=== PATIENT | female | born 1970 | race Caucasian/White ===

== ENCOUNTER 2017-10-31 13:38 | Emergency (ER) | payer MEDICAID ==
[~2017-10-31] VITALS: Ht 162.6 cm; Wt 74.8 kg
[~2017-10-31 13:38] MED LIST: ACETAMINOPHEN-1 EAC1 PO; ACYCLOVIR 800800 M1 PO; ADVAIR HFA 230M12 GM INH; CELEXA 20 MG TA20 M1; CIPRODEX OTIC7.5 ML OTIC; DARVOCET-N 1001 EACH PO; DUONEB 2.5-0.5 M3 ML INH; FLEXERIL; FLEXERIL PO; FLONASE 0.05%50 MCG NASAL; FOLIC ACID1 MG PO; GERD MED; IBUPROFEN; IBUPROFEN 800800 M1 PO; IBUPROFEN 800800 MG PO; LAMICTAL XR100 MG; LEXAPRO 10 MG T10 MG; MEDROLDOSEPACK PO; MIGRAINE MED; NEBULIZER MISCELL; NORCO 5-325 TA1 EACH; NORCO 5-325 TA1 EACH PO; NORCO 7.5-3251 EACH PO; NORFLEX100 MG PO; OMEPRAZOLE 20 M20 M1 PO; ONDANSETRON HCL4 M2 PO; PREDNISONE 5 MG5 M1 PO; PREMARIN; SEIZURE MEDS; SILVADENE20 GM TP; TRAMADOL 50 MG50 MG PO; VENTOLIN HFA 1818 GM INH; VICODIN; VOLTAREN GEL 1100 G1; XYLOCAINE; ZANAFLEX4 M1 PO; ZANAFLEX4 MG PO; ZPAK PO
[2017-10-31] MEDS ORDERED: KEFLEX500 M1 PO (14:57)
[2017-10-31 15:02] VITALS: BP 138/72
== END 2017-10-31 15:03 | disposition home or self-care (01) ==
LOC: M.ERS 13:38
DX: S90.112A Contusion of left great toe without damage to nail, initial encounter (principal); J45.909 Unspecified asthma, uncomplicated; Z90.710 Acquired absence of both cervix and uterus; F17.210 Nicotine dependence, cigarettes, uncomplicated; Z88.1 Allergy status to other antibiotic agents; Z88.0 Allergy status to penicillin; Z88.2 Allergy status to sulfonamides; W20.8XXA Other cause of strike by thrown, projected or falling object, initial encounter; Y93.89 Activity, other specified; Y92.89 Other specified places as the place of occurrence of the external cause; Y99.8 Other external cause status

== ENCOUNTER 2018-01-23 12:12 | Emergency (ER) | payer MEDICAID ==
[~2018-01-23] VITALS: Ht 162.6 cm; Wt 67.1 kg
[~2018-01-23 12:12] MED LIST changes: +KEFLEX500 M1 PO
[2018-01-23 12:52] VITALS: BP 137/92
== END 2018-01-23 12:53 | disposition home or self-care (01) ==
LOC: M.ERS 12:12
DX: F41.0 Panic disorder [episodic paroxysmal anxiety] (principal); R51 Headache; R11.2 Nausea with vomiting, unspecified; J45.909 Unspecified asthma, uncomplicated; Z90.710 Acquired absence of both cervix and uterus; Z98.890 Other specified postprocedural states; Z88.0 Allergy status to penicillin; Z88.2 Allergy status to sulfonamides; Z88.1 Allergy status to other antibiotic agents; Z88.8 Allergy status to other drugs, medicaments and biological substances; F17.210 Nicotine dependence, cigarettes, uncomplicated

== ENCOUNTER 2018-04-10 23:46 | Emergency (ER) | payer MEDICAID ==
[~2018-04-10] VITALS: Ht 162.6 cm; Wt 72.6 kg
[2018-04-10] MEDS ORDERED: ZANTAC 150MG T150 MG PO (23:54)
[2018-04-10] MEDS ORDERED: LISINOPRIL10 MG PO (23:54)
[2018-04-11 00:07] VITALS: BP 156/93
== END 2018-04-11 00:09 | disposition left against medical advice (07) ==
LOC: M.ERS 23:46
DX: F41.0 Panic disorder [episodic paroxysmal anxiety] (principal); J45.909 Unspecified asthma, uncomplicated; F17.210 Nicotine dependence, cigarettes, uncomplicated; Z88.0 Allergy status to penicillin; Z88.1 Allergy status to other antibiotic agents; Z88.2 Allergy status to sulfonamides; Z88.6 Allergy status to analgesic agent; Z91.040 Latex allergy status; Z90.710 Acquired absence of both cervix and uterus

== ENCOUNTER 2018-06-26 22:10 | Emergency (ER) | payer MEDICAID ==
[~2018-06-26] VITALS: Ht 162.6 cm; Wt 72.6 kg
[~2018-06-26 22:10] MED LIST changes: +LISINOPRIL10 MG PO; +ZANTAC 150MG T150 MG PO
[2018-06-26] MEDS ORDERED: PRINIVIL20 MG PO (22:18)
[2018-06-26 23:03] VITALS: BP 105/69
== END 2018-06-26 23:03 | disposition home or self-care (01) ==
LOC: M.ERS 22:10
DX: M79.674 Pain in right toe(s) (principal); J45.909 Unspecified asthma, uncomplicated; Z90.710 Acquired absence of both cervix and uterus; Z98.890 Other specified postprocedural states; F17.210 Nicotine dependence, cigarettes, uncomplicated; Z88.0 Allergy status to penicillin; Z88.2 Allergy status to sulfonamides; Z88.1 Allergy status to other antibiotic agents; Z88.8 Allergy status to other drugs, medicaments and biological substances

== ENCOUNTER 2018-07-28 12:13 | Emergency (ER) | payer MEDICAID ==
[~2018-07-28] VITALS: Ht 162.6 cm; Wt 72.6 kg
[~2018-07-28 12:13] MED LIST changes: +PRINIVIL20 MG PO
[2018-07-28] MEDS ORDERED: CYMBALTA20 MG PO (12:24)
[2018-07-28] MEDS ORDERED: VENTOLIN HFA 1818 GM INH (12:25)
[2018-07-28] MEDS ORDERED: TRAMADOL 50 MG50 MG (12:25)
[2018-07-28] MEDS ORDERED: SYMBICORT160 MCG/4. INH (12:25)
[2018-07-28] MEDS ORDERED: SSD CREAM 1% 5050 GM TOP (12:36)
[2018-07-28] MEDS ORDERED: NORCO 5-325 TA1 EACH PO (12:37)
[2018-07-28 12:58] VITALS: BP 123/98
== END 2018-07-28 12:58 | disposition home or self-care (01) ==
LOC: M.ERS 12:13
DX: T22.10XA Burn of first degree of shoulder and upper limb, except wrist and hand, unspecified site, initial encounter (principal); T31.0 Burns involving less than 10% of body surface; F17.210 Nicotine dependence, cigarettes, uncomplicated; J45.909 Unspecified asthma, uncomplicated; Z88.8 Allergy status to other drugs, medicaments and biological substances; Z88.1 Allergy status to other antibiotic agents; Z91.040 Latex allergy status; Z88.0 Allergy status to penicillin; Z88.2 Allergy status to sulfonamides; Z88.6 Allergy status to analgesic agent; Z90.710 Acquired absence of both cervix and uterus; Z98.890 Other specified postprocedural states

== ENCOUNTER 2018-08-31 15:40 | Emergency (ER) | payer MEDICAID ==
[~2018-08-31] VITALS: Ht 152.4 cm; Wt 72.6 kg
[~2018-08-31 15:40] MED LIST changes: +CYMBALTA20 MG PO; +SSD CREAM 1% 5050 GM TOP; +SYMBICORT160 MCG/4. INH; +TRAMADOL 50 MG50 MG
[2018-08-31] MEDS ORDERED: NITROGLYCERIN0.4 MG SUBLING (15:49)
[2018-08-31] MEDS ORDERED: NORCO 5-325 TA1 EACH PO (16:30)
[2018-08-31 17:13] VITALS: BP 144/96
== END 2018-08-31 17:16 | disposition home or self-care (01) ==
LOC: M.ERS 15:40
DX: M25.531 Pain in right wrist (principal); F17.210 Nicotine dependence, cigarettes, uncomplicated; J45.909 Unspecified asthma, uncomplicated; Z88.8 Allergy status to other drugs, medicaments and biological substances; Z88.1 Allergy status to other antibiotic agents; Z91.040 Latex allergy status; Z88.0 Allergy status to penicillin; Z88.2 Allergy status to sulfonamides; Z88.6 Allergy status to analgesic agent; Z90.710 Acquired absence of both cervix and uterus; Z98.890 Other specified postprocedural states

== ENCOUNTER 2018-10-10 09:52 | Emergency (ER) | payer MEDICAID ==
[~2018-10-10] VITALS: Ht 162.6 cm; Wt 70.8 kg
[~2018-10-10 09:52] MED LIST changes: +NITROGLYCERIN0.4 MG SUBLING
[2018-10-10] MEDS ORDERED: NORVASC2.5 MG PO (10:04)
[2018-10-10] MEDS ORDERED: CARVEDILOL3.125 MG PO (10:04)
[2018-10-10 10:51] VITALS: BP 138/84
== END 2018-10-10 10:52 | disposition home or self-care (01) ==
LOC: M.ERS 09:52
DX: S61.511D Laceration without foreign body of right wrist, subsequent encounter (principal); F17.210 Nicotine dependence, cigarettes, uncomplicated; J45.909 Unspecified asthma, uncomplicated; Z88.8 Allergy status to other drugs, medicaments and biological substances; Z88.1 Allergy status to other antibiotic agents; Z91.040 Latex allergy status; Z88.0 Allergy status to penicillin; Z88.2 Allergy status to sulfonamides; Z88.6 Allergy status to analgesic agent; Z90.710 Acquired absence of both cervix and uterus; Z98.890 Other specified postprocedural states; X58.XXXD Exposure to other specified factors, subsequent encounter

== ENCOUNTER 2019-09-30 13:57 | Emergency (ER) | payer MEDICAID ==
[~2019-09-30] VITALS: Ht 162.6 cm; Wt 82.1 kg
[~2019-09-30 13:57] MED LIST changes: +CARVEDILOL3.125 MG PO; +NORVASC2.5 MG PO
[2019-09-30] MEDS ORDERED: SEROQUEL 50 MG50 M1 PO (14:11)
[2019-09-30] MEDS ORDERED: RAYOS5 MG PO (14:11)
[2019-09-30] MEDS ORDERED: REMERON 30 MG T30 MG PO (14:11)
[2019-09-30] MEDS ORDERED: LAMICTAL100 MG PO (14:12)
[2019-09-30] MEDS ORDERED: PROAIR DIGIHAL90 MCG INH (14:13)
[2019-09-30] MEDS ORDERED: SYMBICORT160 MCG/4. INH (14:13)
[2019-09-30] MEDS ORDERED: HYDROXYZINE HCL25 M2 PO (14:13)
[2019-09-30] MEDS ORDERED: NORVASC 2.5 MG2.5 M1 PO (14:13)
[2019-09-30] MEDS ORDERED: IPRAT-ALBUT 0.5-3 ML INH (14:14)
[2019-09-30] MEDS ORDERED: CARVEDILOL12.5 MG PO (14:14)
[2019-09-30] MEDS ORDERED: COZAAR 25 MG TA25 M1 PO (14:15)
[2019-09-30] MEDS ORDERED: ASA81BEC PO (14:15)
[2019-09-30] MEDS ORDERED: IMDUR 60 MG TAB60 M1 PO (14:15)
[2019-09-30] MEDS ORDERED: ATORVASTATIN CA80 MG PO (14:15)
[2019-09-30] MEDS ORDERED: DEPAKOTE500 MG PO (14:15)
[2019-09-30] MEDS ORDERED: LORATIDINE 10 M10 M1 PO (14:16)
[2019-09-30] MEDS ORDERED: VOLTAREN100 GM TOP (14:16)
[2019-09-30] MEDS ORDERED: OMEPRAZOLE40 MG PO (14:16)
[2019-09-30] MEDS ORDERED: DESYREL150 MG PO (14:16)
[2019-09-30] MEDS ORDERED: NITROSTAT0.4 M1 SUBLING (14:17)
[2019-09-30 14:43] LABS: ABSOLUTE EOSINOPHILS 0.3 thou/uL (0.0-0.7); ABSOLUTE LYMPHOCYTES 2.3 thou/uL (0.8-5.3); ABSOLUTE MONOCYTES 0.6 thou/uL (0.0-1.2); BASOPHILS 0.6 %; EOSINOPHILS 4.8 %; HEMATOCRIT 40.2 % (37.0-47.0); HEMOGLOBIN 13.8 gm/dL (12.0-15.0); LYMPHOCYTES 37.3 %; MCHC 34.2 g/dL (28.0-37.0); MCV 93.6 fL (80.0-100.0); MPV 7.6 fl. (7.2-11.1); NUCLEATED RBCS 0 /100WBC; PLATELET COUNT* 245 thou/uL (150-400); POLYS 48.3 %; RDW-CV 12.8 % (10.5-14.5); WBC 6.3 thou/uL (4.0-11.0)
[2019-09-30 14:50] LABS: CALCIUM 8.7 mg/dL (8.5-10.1); CREATININE 0.8 mg/dL (0.6-1.3); POTASSIUM 3.6 mmol/L (3.5-5.1)
[2019-09-30 15:00] LABS: ALBUMIN 3.4 g/dL (3.4-5.0); MAGNESIUM 1.9 mg/dL (1.8-2.4); TOTAL BILIRUBIN 0.3 mg/dL (<0.1-1.0); TOTAL PROTEIN 6.7 g/dL (6.4-8.2)
[2019-09-30 16:29] VITALS: BP 140/89
--- NOTE | 2019-10-01 11:34 | EKG ---
[place] [address] ELECTROCARDIOGRAM REPORT Name: HAYLEEDIANACIRILO Neville Room: [facility]#: [id number] Admission: 09/30/19 Attend Phys: Discharge: 09/30/19 Date of : 68 Date of Service: 09/30/19 1429 Report #: [id number] THIS REPORT FOR: //name// [facility] ED Test Date: 2019-09-30 Test Time: 14:29:09 Pat Name: LINN LEACH Department: Room: Gender: Office 365 Consultant: POWER : [id number] Requested By: Renny Aguilar Order Number: [id number] MD: Abiodun Teixeira Measurements Intervals [place] Rate: 78 P: 30 MA: 159 QRS: -11 QRSD: 88 T: 19 QT: 360 QTc: 411 Interpretive Statements Sinus rhythm Baseline wander in lead(s) V5 Compared to ECG 07/21/2009 16:50:11 no change Electronically Signed On 10-01-2019 11:34:16 CDT by Abiodun Teixeira [email or web address] <ELECTRONICALLY SIGNED> By: Abiodun Teixeira MD, [facility] 10/01/19 1134 1429 1429 Abiodun Teixeira MD, [facility] /EPI
== END 2019-09-30 16:38 | disposition left against medical advice (07) ==
LOC: M.ERS 13:57
PROVIDERS: Emergency Medicine Emergency Medical Services
DX: R07.9 Chest pain, unspecified (principal); R06.02 Shortness of breath; R11.2 Nausea with vomiting, unspecified; I10 Essential (primary) hypertension; J44.9 Chronic obstructive pulmonary disease, unspecified; I25.10 Atherosclerotic heart disease of native coronary artery without angina pectoris; F17.210 Nicotine dependence, cigarettes, uncomplicated; Z79.899 Other long term (current) drug therapy; Z90.89 Acquired absence of other organs; Z88.5 Allergy status to narcotic agent; Z88.1 Allergy status to other antibiotic agents; Z91.040 Latex allergy status; Z88.2 Allergy status to sulfonamides